=== PATIENT | female | born 1980 | race Hispanic/Latino ===

== ENCOUNTER 2020-11-17 11:29 | Inpatient (IN) | payer BC ==
[~2020-11-17] VITALS: Ht 160 cm; Wt 96.6 kg
[2020-11-17 12:13] LABS: BASOPHILS % (AUTO) 0.2 % (0.0-5.0); EOSINOPHILS % (AUTO) 1.6 % (0.0-8.0); HEMATOCRIT 40.4 % (36-48); LYMPHOCYTES % (AUTO) 7.4 % (21.0-51.0); MEAN CORPUSCULAR HEMOGLOBIN 31.8 pg (27.0-33.0); MEAN CORPUSCULAR HGB CONC 34.9 g/dL (32.0-36.0); MONOCYTES % (AUTO) 3.5 % (3.0-13.0); NEUTROPHILS % (AUTO) 86.8 % (40.0-77.0); PLATELET COUNT (AUTO) 304 K/uL (130-400); RED BLOOD CELL COUNT(AUTO) 4.44 MIL/uL (4.00-5.50); RED CELL DISTRIBUTION WIDTH 11.6 % (11.0-15.5); WHITE BLOOD COUNT (AUTO) 13.2 K/uL (4.8-10.8)
[2020-11-17] MEDS ORDERED: ONDANSETRON 4MG INJ IVP ONE (12:30)
[2020-11-17] MEDS ORDERED: MORPHINE 4 MG SYG IV ONE ×2 (12:30→14:00)
[2020-11-17 12:33] LABS: ALBUMIN 3.6 g/dL (3.5-5.0); BILIRUBIN,TOTAL 0.6 mg/dL (0.2-1.0); TOTAL PROTEIN, SERUM 7.4 g/dL (6.0-8.3)
[2020-11-17 13:30] LABS: APPEARANCE,URINE SL CLOUDY (CLEAR); BILIRUBIN,URINE NEGATIVE (NEGATIVE); COLOR,URINE YELLOW (YELLOW); GLUCOSE, URINE (UA) NEGATIVE (NEGATIVE); KETONES,URINE NEGATIVE (NEGATIVE); LEUKOCYTE ESTERASE ,URINE SMALL (NEGATIVE); NITRATE,URINE NEGATIVE (NEGATIVE); OCCULT BLOOD,URINE MODERATE (NEGATIVE); PROTEIN,URINE NEGATIVE (NEGATIVE); UROBILINOGEN,URINE 0.2 mg/dL (0.2-1.0)
[2020-11-17 13:32] LABS: HCG,QUAL RESULT NEGATIVE (NEGATIVE)
[2020-11-17 13:59] LABS: BACTERIA,URINE Few /HPF (None Seen); SQUAMOUS EPITHELIAL CELL,UR Moderate /HPF (0-2)
[2020-11-17] MEDS ORDERED: KETOROLAC 30MG VIAL (30MG/ML) IM ONE (17:30)
[2020-11-17] MEDS ORDERED: ZOSYN 3.375GM+NS 50ML 3.38 GM in 0.9%NACL 50ML 50 ML IV ONE (21:30)
[2020-11-17] MEDS ORDERED: LEVOFLOXACIN 750 MG/D5W 150 ML 150 ML IV ONE (22:00)
[2020-11-17] MEDS ORDERED: DEXTROSE 5 % AND 0.9 % NACL 1,000 ML IV ONE (22:27)
[2020-11-18] MEDS: DEXTROSE 5 % AND 0.9 % NACL 1,000 ML IV SCH ×3 (01:30→21:30)
[2020-11-18 04:00] VITALS: BP 97/62
[2020-11-18 07:27] LABS: HEMATOCRIT 38.1 % (36-48); MEAN CORPUSCULAR HEMOGLOBIN 31.7 pg (27.0-33.0); MEAN CORPUSCULAR HGB CONC 34.1 g/dL (32.0-36.0); MEAN CORPUSCULAR VOLUME 92.9 fL (79-99); RED BLOOD CELL COUNT(AUTO) 4.1 MIL/uL (4.00-5.50); RED CELL DISTRIBUTION WIDTH 11.8 % (11.0-15.5)
[2020-11-18 07:56] LABS: MAGNESIUM 1.8 mg/dL (1.80-2.40); POTASSIUM 3.5 mmol/L (3.5-5.1)
[2020-11-18] MEDS ORDERED: ONDANSETRON 4MG INJ IVP PRN (08:00)
[2020-11-18 08:56] VITALS: BP 97/64
[2020-11-18] MEDS ORDERED: ZOSYN 3.375GM+NS 50ML 50 ML IV SCH (13:00)
[2020-11-18] MEDS ORDERED: ZOSYN 3.375GM+NS 50ML 3.38 GM in 0.9%NACL 50ML 50 ML IV SCH (13:00)
[2020-11-18 13:04] VITALS: BP 93/60
[2020-11-18] MEDS: METRONIDAZOLE 500MG/100ML BAG 100 ML IVPB SCH ×2 (14:07→21:45)
[2020-11-18 17:08] VITALS: BP 93/60
[2020-11-18] MEDS: LEVOFLOXACIN 750 MG/D5W 150 ML 150 ML IV SCH (18:02)
[2020-11-18] MEDS ORDERED: KETOROLAC 30MG VIAL (30MG/ML) ONE (18:58)
[2020-11-18] MEDS ORDERED: KETOROLAC 30MG VIAL (30MG/ML) IV ONE (19:00)
[2020-11-18 20:00] VITALS: BP 112/62
[2020-11-18] MEDS ORDERED: KETOROLAC 30MG VIAL (30MG/ML) IV PRN (20:00)
[2020-11-18] MEDS: MORPHINE 2 MG SYG IVP PRN (21:45)
[2020-11-19] VITALS: BP 92/52
[2020-11-19 04:00] VITALS: BP 94/52
[2020-11-19] MEDS: METRONIDAZOLE 500MG/100ML BAG 100 ML IVPB SCH ×3 (06:12→20:33)
[2020-11-19] MEDS: DEXTROSE 5 % AND 0.9 % NACL 1,000 ML IV SCH ×2 (06:12→17:21)
[2020-11-19 08:03] VITALS: BP_SYST 130; BP_SYST 83; BP_DIAS 51; BP_DIAS 72
[2020-11-19] MEDS: LEVOFLOXACIN 750 MG/D5W 150 ML 150 ML IV SCH (10:21)
[2020-11-19 11:00] LABS: BASOPHILS % (AUTO) 0.3 % (0.0-5.0); EOSINOPHILS % (AUTO) 7.3 % (0.0-8.0); HEMATOCRIT 38.2 % (36-48); MEAN CORPUSCULAR HEMOGLOBIN 32.3 pg (27.0-33.0); MEAN CORPUSCULAR HGB CONC 34.6 g/dL (32.0-36.0); MEAN CORPUSCULAR VOLUME 93.4 fL (79-99); MONOCYTES % (AUTO) 8.5 % (3.0-13.0); NEUTROPHILS % (AUTO) 60.6 % (40.0-77.0); PLATELET COUNT (AUTO) 270 K/uL (130-400); RED BLOOD CELL COUNT(AUTO) 4.09 MIL/uL (4.00-5.50); RED CELL DISTRIBUTION WIDTH 11.8 % (11.0-15.5); WHITE BLOOD COUNT (AUTO) 7.3 K/uL (4.8-10.8)
[2020-11-19 11:07] LABS: CREATININE 1.1 mg/dL (0.5-1.5); POTASSIUM 4.2 mmol/L (3.5-5.1)
[2020-11-19 11:21] VITALS: BP 89/63
[2020-11-19] MEDS: MORPHINE 2 MG SYG IVP PRN (14:48)
[2020-11-19 16:14] VITALS: BP 117/75
[2020-11-19 21:15] VITALS: BP 102/51
[2020-11-20 01:50] VITALS: BP 104/70
[2020-11-20] MEDS: DEXTROSE 5 % AND 0.9 % NACL 1,000 ML IV SCH (03:02)
[2020-11-20 04:24] VITALS: BP 89/60
[2020-11-20] MEDS: METRONIDAZOLE 500MG/100ML BAG 100 ML IVPB SCH (04:40)
[2020-11-20 04:42] VITALS: BP 103/72
[2020-11-20] MEDS ORDERED: DOCUSATE SODIUM 100 MG CAP PO SCH (09:00)
[2020-11-20] MEDS: LEVOFLOXACIN 750 MG/D5W 150 ML 150 ML IV SCH (09:40)
[2020-11-20 09:42] VITALS: BP 100/59
[2020-11-20 11:48] VITALS: BP 101/69
[2020-11-20 17:09] LABS: CHLAMYDIA DNA N.A.AMPLIFY Negative (Negative); GC DNA N.A. AMPLIFY Negative (Negative)
== END 2020-11-20 14:50 | disposition home or self-care (01) | DRG 395 ==
LOC: EDH 11:29 → OBSVTOIN 21:29 → EDHIP 21:29 → 3BH 11-18 04:44
PROVIDERS: ADMIT Internal Medicine Infectious Disease; ATTEND Internal Medicine Infectious Disease
DX: K37 Unspecified appendicitis (principal); E66.9 Obesity, unspecified; R53.81 Other malaise; I95.9 Hypotension, unspecified; Z68.37 Body mass index [BMI] 37.0-37.9, adult; Z88.0 Allergy status to penicillin; Z83.3 Family history of diabetes mellitus
CPT/HCPCS: 36415; 71045; 74176; 76830; 80048; 80053; 81001; 81025; 82150; 82550; 83690; 83735; 84484; 85025; 85027; 87088; 87486; 87797; 93005; G0378; J1885; J1956; J2270; J2405; J3490; J7042